=== PATIENT | male | born 1965 | race American Indian/Alaskan Native ===

== ENCOUNTER 2016-10-11 11:22 | Emergency (ER) | payer SELFPAY ==
[2016-10-11 12:16] LABS: Basophils % (Auto) 0.6 % (0.0-1.8); Eosinophils % (Auto) 0.4 % (0.0-4.3); Hematocrit 42.2 % (35.5-45.6); Hemoglobin 14.2 gm/dl (11.8-15.2); Mean Corpuscular HGB Conc 34 % (32-34); Mean Corpuscular Hemoglobin 31 pg (28-32); Mean Corpuscular Volume 90 fl (84-94); Platelet Count 287 K/mm3 (140-440); Red Blood Count 4.67 M/mm3 (3.65-5.03); Red Cell Distribution Width 13.2 % (13.2-15.2)
[2016-10-11 12:27] LABS: INR 1.05 (0.87-1.13); Partial Thromboplastin Time 28.1 Sec. (24.2-36.6)
--- NOTE | 2016-10-11 12:46 | Cat Scan Report ---
CT HEAD WITHOUT CONTRAST INDICATION: Neuro deficits <6 hours or symptoms present upon awakening. COMPARISON: None similar. FINDINGS: Noncontrast head CT demonstrates normal, symmetric ventricles and sulci without acute or recent infarct, hemorrhage, mass effect or midline shift. No abnormal extra-axial fluid collections. Posterior fossa structures and basilar cisterns appear within normal limits. Symmetric eye globes. Slight right mid ethmoid air cell opacification. Clear remainder imaged paranasal sinuses and temporal bone air cells with mastoid tips not well pneumatized. Intact calvarium. Normal overlying scalp soft tissues. Few missing teeth and cervical spondylosis incidentally noted. CONCLUSION: No acute intracranial CT abnormality, as described. I phoned the above results to Dr. Koch in the ER, 12:40 PM, 10/11/2016. Thank you for the opportunity to participate in this patient's care.
[2016-10-11 13:38] LABS: Anion Gap 20 mmol/L; Blood Urea Nitrogen 9 mg/dL (9-20); Calcium 9.8 mg/dL (8.4-10.2); Carbon Dioxide 24 mmol/L (22-30); Chloride 99.1 mmol/L (98-107); Glucose 162 mg/dL (75-100); Sodium 139 mmol/L (137-145)
[2016-10-11] MEDS ORDERED: BENADRYL IV ONE (15:12)
[2016-10-11] MEDS ORDERED: REGLAN IV ONE (15:12)
[2016-10-11] MEDS ORDERED: NORCO 7.5/325 PO ONE (15:12)
[2016-10-11] MEDS ORDERED: TORADOL IM ONE (15:12)
--- NOTE | 2016-10-11 18:41 | Emergency Department Report ---
HPI - General Chief Complaint: High BP Time Seen by Provider: 10/11/16 14:29 - HPI HPI: Patient is a 51-year-old male presents for evaluation of headache. The patient reports headache since 7 AM this morning, constant since onset, 8/10 in severity , aching in quality, exacerbated with bright lights. The patient denies fever, head injury, neck pain, neck stiffness, vision or hearing changes, smell or taste changes, paresthesias, facial drooping, slurred speech, seizure-like activity, urine or bowel incontinence or retention, or other focal neurological deficit. ED Past Medical Hx - Past Medical History Previous Medical History?: Yes Hx Hypertension: Yes Hx Diabetes: Yes - Surgical History Past Surgical History?: No - Social History Smoking Status: Current Every Day Smoker Substance Use Type: Alcohol, Cocaine, Marijuana, Prescribed - Medications Home Medications: Home Medications Medication Instructions Recorded Confirmed Last Taken Type metFORMIN [Glucophage] 500 mg PO QDAY #31 tab 04/15/15 10/11/16 Unknown Rx Butalb/Acetamin/Caff 50-325-40 1 tab PO Q6HR PRN #15 tab 10/11/16 Unknown Rx [Fioricet] Hydrochlorothiazide [HCTZ] 25 mg PO QDAY #31 tablet 10/11/16 Unknown Rx ED Review of Systems ROS: Stated complaint: ELEVATED BP/HEAD HURTS Other details as noted in HPI Constitutional: denies: fever ENT: denies: throat or neck pain Respiratory: denies: cough, shortness of breath Cardiovascular: denies: chest pain Endocrine: denies unexplained weight loss or gain Gastrointestinal: denies: abdominal pain, nausea Genitourinary: denies: dysuria Musculoskeletal: denies: leg swelling Skin: denies: rash Neurological: reports headache Hematological/Lymphatic: denies: easy bleeding or easy bruising Psych: denies sadness or hopelessness Physical Exam - Physical Exam Vital Signs: Vital Signs 10/11/16 10/11/16 10/11/16 11:48 15:35 16:15 Temperature 98.1 F Pulse Rate 81 67 74 Respiratory 20 16 18 Rate Blood Pressure 177/118 Blood Pressure 171/118 158/92 [Left] O2 Sat by Pulse 97 99 100 Oximetry Physical Exam: General: well-nourished, well-developed, no acute distress Head: Normocephalic, atraumatic Eyes: normal sclera, PERRL, EOM intact ENT: Mucous membranes are pink and moist Neck: trachea midline, neck supple, No neck stiffness, no cervical adenopathy Respiratory: Breath sounds equal bilaterally, no wheezing, rales, or rhonchi Cardio: S1 and S2 present, no murmurs, rubs, gallops, capillary refill is brisk Abdomen: Normoactive bowel sounds, soft abdomen, no rigidity, no guarding or rebound tenderness Chest WALL/Back: No tenderness to palpation of the chest wall, no CVA tenderness with percussion Musc: No pitting edema Skin: No rash Neuro: alert oriented x4, normal cognition, speech normal, no facial drooping, no uvula or tongue deviation on protrusion, no deficit with rotation of neck or shoulder shrug, no obvious gross motor deficit in the upper or lower extremities with flexion or extension at the shoulder, elbow, wrist, hip, knee, or ankle bilaterally, no obvious gross sensation deficit to crude touch or 2 pt discrimination, 2+ symmetric reflexes on DTR testing, no coordination deficit with [id number] or [id number] testing, romberg negative, patient able to to ambulate without abnormal gait Psych: Normal affect ED Course Vital Signs 10/11/16 10/11/16 10/11/16 11:48 15:35 16:15 Temperature 98.1 F Pulse Rate 81 67 74 Respiratory 20 16 18 Rate Blood Pressure 177/118 Blood Pressure 171/118 158/92 [Left] O2 Sat by Pulse 97 99 100 Oximetry ED Medical Decision Making - Lab Data Result diagrams: 10/11/16 12:03 10/11/16 12:03 - Medical Decision Making The patient was seen and examined by myself. The patient is placed on a imaging clerk and continuous pulse ox. On initial evaluation, the patient was found to be in no distress. As there are no neuro deficits or other findings on examination concerning for acute intracranial disease process, and as the patient states that symptoms are consistent with previous headaches, a CAT scan of the head will not be obtained at this time. IV access is established and the patient is given IV Reglan, Benadryl, and IV Toradol for headache. Lab results are unremarkable including CBC, electrolytes, renal function. The patient was reevaluated and reported that their symptoms were markedly improved. The patient is stable for discharge with outpatient follow-up. The patient is given follow-up and return instructions. The patient expressed understanding and agreed with the plan. The patient is discharged in stable condition. Critical care attestation.: If time is entered above; I have spent that time in minutes in the direct care of this critically ill patient, excluding procedure time. ED Disposition Clinical Impression: Hypertensive urgency Acute nonintractable headache Qualifiers: Headache type: tension-type Qualified Code(s): G44.209 - Tension-type headache , unspecified, not intractable Disposition: DC- TO HOME OR SELFCARE Is pt being admited?: No Does the pt Need Aspirin: No Condition: Stable Instructions: Hypertension (ED), Acute Headache (ED) Prescriptions: Butalb/Acetamin/Caff 50-325-40 [Fioricet] 1 tab PO Q6HR PRN #15 tab PRN Reason: Headache Hydrochlorothiazide [HCTZ] 25 mg PO QDAY #31 tablet Referrals: PRIMARY CARE, [Primary Care Provider] - 3-5 Days Time of Disposition: 18:38
[2016-10-11 19:12] VITALS: BP 158/98
== END 2016-10-11 19:13 | disposition home or self-care (01) ==
LOC: ED 11:22
DX: I10 Essential (primary) hypertension (principal); G44.209 Tension-type headache, unspecified, not intractable; E11.9 Type 2 diabetes mellitus without complications; F17.210 Nicotine dependence, cigarettes, uncomplicated; F12.10 Cannabis abuse, uncomplicated
CPT/HCPCS: 36415; 70450; 80048; 82962; 84484; 85025; 85610; 85670; 85730; 93005; 93010; 96372; 96374; 96375; 99285; J1200; J1885; J2765

== ENCOUNTER 2017-07-17 20:49 | Emergency (ER) | payer SELFPAY ==
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
[2017-07-18] MEDS ORDERED: TORADOL IM ONE (01:28)
[2017-07-18] MEDS ORDERED: TORADOL ONE (01:29)
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
[2017-07-18] MEDS ORDERED: BICILLIN L-A IM ONE (07:05)
[2017-07-18] MEDS ORDERED: BOOSTRIX IM ONE (07:05)
[2017-07-18] MEDS ORDERED: NORCO 5/325 PO ONE (07:06)
[2017-07-18 08:06] VITALS: BP 156/100
== END 2017-07-18 08:06 | disposition home or self-care (01) ==
LOC: ED 20:49
DX: S01.511A Laceration without foreign body of lip, initial encounter (principal); S09.93XA Unspecified injury of face, initial encounter; I10 Essential (primary) hypertension; E11.9 Type 2 diabetes mellitus without complications; Z79.84 Long term (current) use of oral hypoglycemic drugs; Y04.8XXA Assault by other bodily force, initial encounter; Y93.89 Activity, other specified; Y92.89 Other specified places as the place of occurrence of the external cause; Y99.8 Other external cause status
CPT/HCPCS: 70450; 70486; 72125; 82962; 90471; 90715; 96372; 99284; J0561; J1885